=== PATIENT | male | born 1980 | race African-American/Black ===

== ENCOUNTER 2020-08-17 17:13 | Emergency (ER) | payer OTHER, SELFPAY ==
--- NOTE | ~2020-08-17 | XR_ITS ---
EXAMINATION: XR knee LT 3V DATE: 08/17/2020 17:51 INDICATION: Left knee pain. Injury. TECHNIQUE: 3 views of left knee were obtained. COMPARISON: None. FINDINGS: Bone alignment is normal. No fracture. There is mild osteoarthritis of medial and patellofe moral compartments. No knee joint effusion. There are loose bodies in the knee joint posteriorly. IMPRESSION: 1. Mild left knee osteoarthritis. 2. Left knee joint loose bodies. Reviewed, dictated and finalized at location A.
--- NOTE | ~2020-08-17 | XR_ITS ---
EXAMINATION: XR chest 1V portable DATE: 08/17/2020 17:52 INDICATION: Chest pain. TECHNIQUE: A single frontal view of the chest was obtained. COMPARISON: None. FINDINGS: The chest demonstrates clear lungs without pneumonia, pleural effusion, or pneumothorax. Th e heart size is normal. IMPRESSION: 1. No acute cardiopulmonary disease. Reviewed, dictated and finalized at location A.
[2020-08-17 17:09] VITALS: BP 111/71; PULSE 74; RESP 18; O2SAT 100
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
[2020-08-17 18:24] VITALS: BP 118/75; PULSE 78; RESP 16; O2SAT 100
== END 2020-08-17 18:25 | disposition home or self-care (01) ==
PROVIDERS: Emergency Provider Emergency Medicine
DX: R07.89 Other chest pain (principal); M25.562 Pain in left knee
CPT/HCPCS: 71045; 73562; 99284

== ENCOUNTER 2020-08-17 19:41 | Emergency (ER) | payer OTHER, SELFPAY ==
--- NOTE | 2020-08-17 19:45 | PC.NURSE ---
Pt presents to ED with complaints of depression. States there is just a lot going on, man . When asked if he feels homicidal or suicidal pt states hell no . Pt noted to be seen earlier today. Pt denies all pain and discomfort at this time. Aware of need for urine specimen and denies the urge to urinate at this time. Pt is alert and oriented x4 and in no obvious distress with stable vitals upon arrival. Pt advised to stop staff for assistance.
[2020-08-17 19:49] VITALS: BP 122/92; PULSE 78; RESP 16; TEMP 36.6; O2SAT 97
--- NOTE | 2020-08-17 20:23 | ED.GENADULT ---
HPI - General Adult General Chief complaint: Unspecified <Andrews Hutchinson PA-C - Last Filed: 08/17/20 21:07> Stated complaint: wants help with drug use <Andrews Hutchinson PA-C - Last Filed: 08/17/20 21:07> Time Seen by Provider: 08/17/20 19:48 <Andrews Hutchinson PA-C - Last Filed: 08/17/20 21:07> Source: patient, RN notes reviewed and old records reviewed <Andrews Hutchinson PA-C - Last Filed: 08/17/20 21:07> Mode of arrival: ambulatory <Andrews Hutchinson PA-C - Last Filed: 08/17/20 21:07> Limitations: no limitations <Andrews Hutchinson PA-C - Last Filed: 08/17/20 21:07> History of Present Illness HPI narrative: Patient is a 39-year-old male who is checking back into the emergency department after being discharged now noting that he has thoughts of harming himself patient had been incarcerated was released came to the emergency department with various complaints patient denies plan to hurt himself or others. Patient is homeless and notes that his mother will not come to get him. Patient notes that he has had some psych history patient takes no medications and is currently homeless. <Andrews Hutchinson PA-C - Last Filed: 08/17/20 21:07> Related Data Allergies/adverse reactions: Allergies Allergy/AdvReac Type Severity Reaction Status Date / Time No Known Allergies Allergy Verified 08/17/20 17:21 <Andrews Hutchinson PA-C - Last Filed: 08/17/20 21:07> Review of Systems Review of Systems: All systems reviewed & are unremarkable except as noted in HPI and below <Andrews Hutchinson PA-C - Last Filed: 08/17/20 21:07> PMFSH Social History Social History: Social History Smoking status: Never smoker Gender identity (if verbalized by the patient): Male <Andrews Hutchinson PA-C - Last Filed: 08/17/20 21:07> Exam Narrative: Exam Narrative: GENERAL: Well-appearing, well-nourished, and in no acute distress. HEAD: Normocephalic, atraumatic. EYES: PERRLA and EOMI. ENT: Nares clear, no rhinorrhea or epistaxis. Mucous membranes moist. NECK: Supple. No adenopathy or masses. No carotid bruits or JVD CHEST: Clear to auscultation. No respiratory distress. No wheezes rales or rhonchi HEART: Regular rate and rhythm. No murmur heard. Normal peripheral pulses. ABDOMEN: Soft, nontender, nondistended, normal active bowel sounds. EXTREMITIES: Normal range of motion. No edema. SKIN: Warm, dry, no rash. Small draining lesion right groin no cellulitic changes NEURO: No focal deficits. Alert and oriented x3. Cranial nerves II through XII grossly intact PSYCH: Normal mood and affect. <Andrews Hutchinson PA-C - Last Filed: 08/17/20 21:07> Course Course Emergency Course: Patient in the room no distress will have psych evaluation otherwise stable at this time <REDD Field Last Filed: 08/17/20 21:07> Reevaluation(s) Reevaluation #2: Evaluated by crisis. No SI/HI. Contracted for safety. <Yimi Logan MD - Last Filed: 08/17/20 23:50> Date: 08/17/20 <Yimi Logan MD - Last Filed: 08/17/20 23:50> Time: 23:49 <Yimi Logan MD - Last Filed: 08/17/20 23:50> Vital Signs Vital signs: Vital Signs Temperature 98 F 08/17/20 19:49 Pulse Rate 78 08/17/20 19:49 Respiratory Rate 16 08/17/20 19:49 Blood Pressure 122/92 H 08/17/20 19:49 Pulse Oximetry 97 08/17/20 19:49 Temperature 98 F 08/17/20 19:49 Pulse Rate 78 08/17/20 19:49 Respiratory Rate 16 08/17/20 19:49 Blood Pressure 122/92 H 08/17/20 19:49 Pulse Oximetry 97 08/17/20 19:49 <REDD Field Last Filed: 08/17/20 21:07> Vital Signs Temperature 98 F 08/17/20 19:49 Pulse Rate 78 08/17/20 19:49 Respiratory Rate 16 08/17/20 19:49 Blood Pressure 122/92 H 08/17/20 19:49 Pulse Oximetry 97 08/17/20 19:49 Temperature 98 F 08/17/20 19:49 Pulse Rate 78
--- NOTE | 2020-08-17 20:29 | PC.NURSE ---
Pt in room resting on cart. Continues to deny the urge to urinate at this time. No complaints or concerns voiced at this time. Advised to press call button for assistance.
[2020-08-17 20:58] LABS: Basophils Percent Auto 0.2 % (0.2-1.2); Eosinophils Percent Auto 0.5 % (0-4.4); Hematocrit 48.2 % (42.0-52.0); Hemoglobin 15.9 g/dL (14.0-18.0); Immature Granulocyte Absolute 0.01 K/mm3 (0.00-0.031); Immature Granulocyte Percent A 0.1 % (0-0.5); Lymphocytes Absolute Auto 1.71 K/mm3 (0.9-3.2); Lymphocytes Percent Auto 20.9 % (18.3-44.2); Mean Corpuscular Hemoglobin 31.2 pg (26-34); Mean Corpuscular Volume 94.7 fl (80-100); Mean Platelet Volume 9.4 fl (7.4-10.4); Monocytes Absolute Auto 0.6 K/mm3 (0.1-0.6); Monocytes Percent Auto 7.7 % (2.6-8.5); Neutrophils Absolute Auto 5.8 K/mm3 (1.3-6.7); Neutrophils Percent Auto 70.6 % (45.5-73.1); Platelet Count Result 205 k/mm3 (150-375); Red Blood Count 5.09 M/mm3 (4.6-6.20); Red Cell Distribution Width 13.7 % (11.5-14.5); White Blood Count 8.2 K/mm3 (4.5-10.0)
[2020-08-17 21:08] LABS: Ethanol < 10 mg/dL (<10)
[2020-08-17 21:09] LABS: Alanine Aminotransferase 10 U/L (4-50); Albumin Level 4.5 g/dL (3.5-5.1); Alkaline Phosphatase 60 U/L (38-126); Anion Gap 4 mmol/L (8-16); Aspartate Amino Transferase 25 U/L (17-59); Bilirubin,Total 0.3 mg/dL (0.2-1.3); Blood Urea Nitrogen 13 mg/dL (9-20); Calcium 9.6 mg/dL (8.4-10.2); Carbon Dioxide 35 mmol/L (22-30); Chloride 102 mmol/L (98-107); Estimated CRCL calculation 70 ml/min; Estimated Glomerular Filt Rate > 60; Glucose 89 mg/dL (75-110); Potassium 4.7 mmol/L (3.4-5.0); Sodium 141 mmol/L (137-145)
--- NOTE | 2020-08-17 21:42 | PC.NURSE ---
Urine specimen collected and sent to lab. Pt resting in room with no complaints or concerns voiced at this time.
[2020-08-17 21:55] LABS: Add Urine Microscopic? NO; Appearance Urine Clear (Clear); Bilirubin Urine Negative (Negative); Blood Urine Negative (Negative); Color Urine Yellow (Yellow); Glucose Urine UA Negative (Negative); Ketones Urine Negative (Negative); Leukocyte Esterase Ur Negative LEU/UL (Negative); Nitrate Urine Negative (Negative); Protein Urine Negative (Negative); Urobilinogen Urine Negative mg/dL (<2.0)
[2020-08-17 22:15] LABS: Amphetamine Screen Urine Negative (Negative); Barbiturate Screen Urine Negative (Negative); Benzodiazepines Screen Urine Negative (Negative); Cannabinoid Screen Urine Negative (Negative); Cocaine Screen Urine Negative (Negative); Methadone Screen Urine Negative (Negative); Opiate Screen Urine Negative (Negative); Phencyclidine Screen Urine Negative (Negative)
--- NOTE | 2020-08-17 22:27 | PC.NURSE ---
Pt resting on cart in its lowest position with no complaints or concerns voiced at this time. Advised to stop staff for assistance. Pt provided lunch box per ok from EDMD.
--- NOTE | 2020-08-17 22:32 | PC.NURSE ---
crisis called on patient, they will send someone out to evaluate.
--- NOTE | 2020-08-17 22:45 | PC.NURSE ---
Crisis staff states will arrive at approx 2315.
--- NOTE | 2020-08-17 23:12 | PC.NURSE ---
Pt resting in chair with no complaints or concerns voiced and remains calm and cooperative with staff. Advised to stop staff for assistance.
--- NOTE | 2020-08-17 23:14 | PC.NURSE ---
carlos from crisis here to evaluate.
--- NOTE | 2020-08-18 00:02 | PC.NURSE ---
Kimberly from Crisis states that pt is ok to be discharged home.
[2020-08-18 00:12] VITALS: BP 116/76; PULSE 91; RESP 20; TEMP 36.6; O2SAT 100
[2020-08-18 00:15] VITALS: BP 110/76; PULSE 91; RESP 20; O2SAT 100
== END 2020-08-18 00:15 | disposition home or self-care (01) ==
PROVIDERS: Emergency Medicine Emergency Medical Services; Emergency Provider Emergency Medicine
DX: F32.9 Major depressive disorder, single episode, unspecified (principal); L02.214 Cutaneous abscess of groin
CPT/HCPCS: 36415; 71045; 73562; 80053; 80307; 81003; 84443; 85025; 99284

== ENCOUNTER 2020-08-18 16:50 | Emergency (ER) | payer OTHER, SELFPAY ==
[2020-08-18 17:00] VITALS: BP 120/84; PULSE 82; RESP 18; TEMP 36.2; O2SAT 100
--- NOTE | 2020-08-18 17:00 | ECG_ITS ---
Measurements Intervals [place] Rate: 81 P: 76 OK: 145 QRS: 66 QRSD: 93 T: 58 QT: 346 QTc: 404 Interpretive Statements SINUS RHYTHM BASELINE ARTIFACT- I, II, III, AVR, AVL, AVF NORMAL ECG Electronically Signed On 08-18-2020 20:38:33 CDT by Dre Caicedo D.O.
[2020-08-18 17:30] LABS: Basophils Percent Auto 0.3 % (0.2-1.2); Eosinophils Percent Auto 0.4 % (0-4.4); Hematocrit 45.7 % (42.0-52.0); Hemoglobin 14.9 g/dL (14.0-18.0); Immature Granulocyte Absolute 0.04 K/mm3 (0.00-0.031); Immature Granulocyte Percent A 0.4 % (0-0.5); Lymphocytes Absolute Auto 1.47 K/mm3 (0.9-3.2); Lymphocytes Percent Auto 13.4 % (18.3-44.2); Mean Corpuscular HGB Conc 32.6 g/dl (32-36); Mean Corpuscular Hemoglobin 31.2 pg (26-34); Mean Corpuscular Volume 95.6 fl (80-100); Mean Platelet Volume 9.7 fl (7.4-10.4); Monocytes Absolute Auto 0.9 K/mm3 (0.1-0.6); Monocytes Percent Auto 8.6 % (2.6-8.5); Neutrophils Absolute Auto 8.4 K/mm3 (1.3-6.7); Neutrophils Percent Auto 76.9 % (45.5-73.1); Platelet Count Result 210 k/mm3 (150-375); Red Blood Count 4.78 M/mm3 (4.6-6.20); White Blood Count 10.9 K/mm3 (4.5-10.0)
[2020-08-18 17:41] LABS: Ethanol < 10 mg/dL (<10)
[2020-08-18 17:41] LABS: Potassium 3.9 mmol/L (3.4-5.0)
[2020-08-18 17:42] LABS: Alanine Aminotransferase 12 U/L (4-50); Albumin Level 4.4 g/dL (3.5-5.1); Alkaline Phosphatase 60 U/L (38-126); Anion Gap 5 mmol/L (8-16); Aspartate Amino Transferase 22 U/L (17-59); Bilirubin,Total 0.3 mg/dL (0.2-1.3); Blood Urea Nitrogen 12 mg/dL (9-20); Calcium 9.6 mg/dL (8.4-10.2); Carbon Dioxide 32 mmol/L (22-30); Chloride 103 mmol/L (98-107); Estimated CRCL calculation 77 ml/min; Estimated Glomerular Filt Rate > 60; Glucose 99 mg/dL (75-110); Sodium 140 mmol/L (137-145)
[2020-08-18 17:48] LABS: Amphetamine Screen Urine Negative (Negative); Barbiturate Screen Urine Negative (Negative); Benzodiazepines Screen Urine Negative (Negative); Cannabinoid Screen Urine Negative (Negative); Cocaine Screen Urine Negative (Negative); Methadone Screen Urine Negative (Negative); Opiate Screen Urine Negative (Negative); Phencyclidine Screen Urine Negative (Negative)
--- NOTE | 2020-08-18 18:42 | PC.NURSE ---
pt will not stay in his room. pt wants to walk around the ED. Security called. pt unable to direct back to his room. per dr Ennis and dr carvalho, ok to let patient leave. pd called.
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
--- NOTE | 2020-08-18 18:44 | PC.NURSE ---
Patient requesting to be discharged due to the bed in room 15 being hard and not as comfortable as he wants. patient informed that we are unable to discharge him and that he has to be evaluated first by CRISIS. Patient walked out of room and states Last time i could walk around this whole ER, this is not right, your not doing me right. Patient walked out of ED room 15, security was called at this time. EDP aware and is comfortable with patient walking out of ED. Chinmay CHRISTIANSON called at this time. Patient walked out of ED without any personal belongings. EDP and charge nurse aware of situation.
--- NOTE | 2020-08-18 18:50 | PC.NURSE ---
Patient walked back to ED room 15 by Chinmay CHRISTIANSON, requesting to go home.
--- NOTE | 2020-08-18 20:31 | ED.GENADULT ---
HPI - General Adult General Chief complaint: Psychiatric Symptoms Stated complaint: SI Time Seen by Provider: 08/18/20 16:54 Source: patient Mode of arrival: EMS Limitations: no limitations History of Present Illness HPI narrative: 39-year-old was brought in ambulance [place] with complaints of suicidal ideation. Patient states that he isdepressed he was just [facility]. He was seen last night in the ER yesterday, was later discharged. Patient states that he went to [facility] in [place] for the blood back pain. Patient denies any fever or chills no history of nausea or vomiting. He states that he used to heroin intranasally 1-1/2-week ago. Onset (ago): day(s) (1) Associated symptoms: denies other symptoms Related Data Allergies Allergy/AdvReac Type Severity Reaction Status Date / Time No Known Allergies Allergy Verified 08/18/20 17:18 Review of Systems Review of Systems: All systems reviewed & are unremarkable except as noted in HPI and below Constitutional: Constitutional: Reports no additional constitutional complaints Eyes: Eyes: Reports no additional eye complaints ENT: Reports system reviewed and no additional complaints, except as documented Cardiovascular: Cardiovascular: Reports no additional cardiovascular complaints Respiratory: Respiratory: Reports no additional respiratory complaints Gastrointestinal: Gastrointestinal: Reports no additional gastrointestinal complaints Musculoskeletal: Musculoskeletal: Reports no additional musculoskeletal complaints Neurologic: Reports system reviewed and no additional complaints, except as documented Psychiatric: Psychiatric: Reports as per [facility] Social History Social History Smoking status: Never smoker Substance use type: heroin Gender identity (if verbalized by the patient): Male Exam Narrative: Exam Narrative: GENERAL: Well-appearing, well-nourished, and in no acute distress. HEAD: Normocephalic, atraumatic. EYES: PERRLA and EOMI. ENT: Nares clear, no rhinorrhea or epistaxis. Mucous membranes moist. NECK: Supple. CHEST: Clear to auscultation. No respiratory distress. HEART: Regular rate and rhythm. No murmur heard. Normal peripheral pulses. ABDOMEN: Soft, nontender, nondistended, normal active bowel sounds. EXTREMITIES: Normal range of motion. No edema. SKIN: Warm, dry, no rash. NEURO: No focal deficits. Alert and oriented x3. PSYCH: Depressed mood and tearful Course Vital Signs Vital signs: Vital Signs Temperature 36.2 C L 08/18/20 17:00 Pulse Rate 82 08/18/20 17:00 Respiratory Rate 18 08/18/20 17:00 Blood Pressure 120/84 08/18/20 17:00 Pulse Oximetry 100 08/18/20 17:00 Temperature 36.2 C L 08/18/20 17:00 Pulse Rate 82 08/18/20 17:00 Respiratory Rate 18 08/18/20 17:00 Blood Pressure 120/84 08/18/20 17:00 Pulse Oximetry 100 08/18/20 17:00 Medical Decision Making MDM Narrative Medical decision making narrative: Patient is medically stable for psych evaluation and placement Vital Signs Vital Signs: Vital Signs Temperature 36.2 C L 08/18/20 17:00 Pulse Rate 82 08/18/20 17:00 Respiratory Rate 18 08/18/20 17:00 Blood Pressure 120/84 08/18/20 17:00 Pulse Oximetry 100 08/18/20 17:00 Temperature 36.2 C L 08/18/20 17:00 Pulse Rate 82 08/18/20 17:00 Respiratory Rate 18 08/18/20 17:00 Blood Pressure 120/84 08/18/20 17:00 Pulse Oximetry 100 08/18/20 17:00 Lab Data Result diagrams: 08/18/20 17:22 08/18/20 17:22 Labs: Lab Results 08/18/20 08/18/20 08/18/20 Range/Units 17:06 17:21 17:22 WBC 10.9 H (4.5-10.0) K/mm3 RBC 4.78 (4.6-6.20) M/mm3 Hgb 14.9 (14.0-18.0) g/dL Hct 45.7 (42.0-52.0) % MCV 95.6 (80-100) fl MCH 31.2 (26-34) pg MCHC 32.6 (32-36) g/dl RDW 14.0 (11.5-14.5) % Plt Count 210 (150
[2020-08-19 06:14] VITALS: BP 128/86; PULSE 77; RESP 20; TEMP 36.7; O2SAT 100
--- NOTE | 2020-08-19 07:30 | PC.NURSE ---
This RN in room speaking with pt. Pt states I am just depressed. I just got out of [facility] a couple days ago and I am missing my family. I have never tried to hurt myself. I wont never hurt myself. It will never come to that.
--- NOTE | 2020-08-19 09:05 | PC.NURSE ---
pt is at low risk - SOFS documentation stopped - sitter remains at bedside for elopement risk, until Crisis is completed with re-eval of pt. Dr Sandhu aware
[2020-08-19 10:20] VITALS: BP 119/85; PULSE 94; RESP 18; TEMP 36.8; O2SAT 100
[2020-08-19 18:42] LABS: SARS-CoV-2 RNA PCR Negative
== END 2020-08-19 10:45 | disposition home or self-care (01) ==
PROVIDERS: Emergency Provider Family Medicine
DX: F20.3 Undifferentiated schizophrenia (principal); Z20.822 Contact with and (suspected) exposure to COVID-19
CPT/HCPCS: 36415; 80053; 80307; 84443; 85025; 93005; 99284; C9803; U0003; U0005